=== PATIENT | female | born 1965 | race Caucasian/White ===

== ENCOUNTER 2023-06-17 14:38 | Emergency (ER) | payer OTHER ==
[~2023-06-17] VITALS: Ht 180.3 cm; Wt 63.6 kg
[2023-06-17 16:08] LABS: BASO # 0.1 K/mm3 (0.0-0.2); BASO % 1.4 % (0.0-2.0); EOS # 0.1 K/mm3 (0.0-0.7); EOS % 2.6 % (0.0-4.0); GRAN # 3.2 K/mm3 (1.4-6.5); GRAN % 74.4 % (42.2-75.2); HEMATOCRIT 39.4 % (37.0-47.0); LYMPH # 0.5 K/mm3 (1.2-3.4); LYMPH % 11.9 % (20.0-51.0); MEAN CELL VOLUME 88 fl (80.0-100.0); MEAN CORPUSCULAR HEMOGLOBIN 31 pg (27-31); MEAN CORPUSCULAR HGB CONC 36 g/dl (33.0-37.0); MEAN PLATELET VOLUME 9.3 fl (7.4-10.4); MONO # 0.4 K/mm3 (0.1-0.6); MONO % 9.5 % (1.7-9.3); PLATELET COUNT 181 K/mm3 (130-400); REDCELL DISTRIBUTION WIDTH-CV 11.8 % (11.5-14.5)
[2023-06-17 17:18] VITALS: BP 122/72; PULSE 56
== END 2023-06-17 17:18 | disposition home or self-care (01) ==
LOC: COL.ER 14:38
PROVIDERS: Family Medicine
DX: R10.31 Right lower quadrant pain (principal)